=== PATIENT | male | born 1950 | race Caucasian/White ===

== ENCOUNTER 2018-11-27 13:19 | Emergency (ER) | payer OTHER ==
[2018-11-27 14:06] LABS: Absolute Lymphocytes (CBC) 1.8 K/uL (0.7-4.9); Basophils % 1.2 % (0-1.3); Eosinophils % 2.4 % (0-4.4); Hematocrit 45.9 % (39.6-49.0); Lymphocytes % 32.2 % (15.3-44.8); MPV 9.6 fL (7.6-11.3); Monocytes % 8.6 % (3.3-12.3); RBC Red Blood Cell Count 4.94 M/uL (4.33-5.43)
[2018-11-27 14:20] LABS: Albumin 3.8 g/dL (3.4-5.0); Bilirubin Direct 0.1 mg/dL (0-0.2); Bilirubin Total 0.5 mg/dL (0.2-1.0); Potassium 3.9 mmol/L (3.5-5.1); Protein, Total 7.3 g/dL (6.4-8.2)
[2018-11-27 14:49] LABS: Urine Blood NEGATIVE (NEG); Urine Glucose NEGATIVE (NEG); Urine Protein NEGATIVE (NEG)
--- NOTE | 2018-11-27 16:36 | RAD REPORT ---
EXAM DESCRIPTION: CTAbdomen Pelvis W Contrast - 11/27/2018 4:19 pm CLINICAL HISTORY: Abdominal pain. ABD PAIN COMPARISON: No comparisons TECHNIQUE: Biphasic CT imaging of the abdomen and pelvis was performed with 100 ml non-ionic IV cont rast. All CT scans are performed using dose optimization technique as appropriate and may include automated exposure control or mA/KV adjustment according to patient size. FINDINGS: The lung bases are clear. The liver, spleen, pancreas, adrenal glands and kidneys are within normal limits. 20 mm left renal c yst. No bowel obstruction, free air, free fluid or abscess. The appendix is normal. No evidence of signi ficant lymphadenopathy. No suspicious bony findings. Small bilateral inguinal hernias containing fat. IMPRESSION: No acute intra-abdominal or pelvic finding.
--- NOTE | 2018-11-27 16:41 | EDPHYS ---
Physician Documentation [facility] Name: Hever Hazel Age: 68 yrs Sex: Male : 1950 Arrival Date: 11/27/2018 Time: 13:24 Bed 19 Private MD: ED Physician Irving Luevano HPI: 11/27 14:35 This 68 yrs old Male presents to ER via Ambulatory with complaints of kb Abdominal Pain. 14:35 The patient presents with abdominal pain right lower quadrant. Onset: The kb symptoms/episode began/occurred 4 day(s) ago. The symptoms do not radiate. Associated signs and symptoms: none. The symptoms are described as dull. Modifying factors: The symptoms are alleviated by nothing, the symptoms are aggravated by nothing. Severity of pain: At its worst the pain was mild in the emergency department the pain is unchanged. The patient has not experienced similar symptoms in the past. The patient has not recently seen a physician. Pt reports RLQ pain for 4 days that isn't getting any better. . Historical: - Allergies: 13:25 No Known Allergies; aj1 - Home Meds: 13:25 None [Active]; aj1 - PMHx: 13:25 None; aj1 - PSHx: 13:25 thumb surgery; aj1 - Immunization history:: Flu vaccine is up to date. - Social history:: Smoking status: Patient/guardian denies using tobacco. - Ebola Screening: : Patient denies travel to an Ebola-affected area in the 21 days before illness onset. ROS: 14:35 Constitutional: Negative for fever, chills, and weight loss, ENT: Negative for injury, kb pain, and discharge, Neck: Negative for injury, pain, and swelling, Cardiovascular: Negative for chest pain, palpitations, and edema, Respiratory: Negative for shortness of breath, cough, wheezing, and pleuritic chest pain, Back: Negative for injury and pain, : Negative for injury, bleeding, discharge, and swelling, MS/Extremity: Negative for injury and deformity, Skin: Negative for injury, rash, and discoloration, Neuro: Negative for headache, weakness, numbness, tingling, and seizure. 14:35 Abdomen/GI: Positive for abdominal pain, Negative for nausea, vomiting, and diarrhea, constipation, abdominal cramps, abdominal distension, anorexia. Exam: 14:35 Constitutional: This is a well developed, well nourished patient who is awake, alert, kb and in no acute distress. Head/Face: Normocephalic, atraumatic. ENT: Nares patent. No nasal discharge, no septal abnormalities noted. Tympanic membranes are normal and external auditory canals are clear. Oropharynx with no redness, swelling, or masses, exudates, or evidence of obstruction, uvula midline. Mucous membranes moist. Neck: Trachea midline, no thyromegaly or masses palpated, and no cervical lymphadenopathy. Supple, full range of motion without nuchal rigidity, or vertebral point tenderness. No Meningismus. Chest/axilla: Normal chest wall appearance and motion. Nontender with no deformity. No lesions are appreciated. Cardiovascular: Regular rate and rhythm with a normal S1 and S2. No gallops, murmurs, or rubs. Normal PMI, no JVD. No pulse deficits. Respiratory: Lungs have equal breath sounds bilaterally, clear to auscultation and percussion. No rales, rhonchi or wheezes noted. No increased work of breathing, no retractions or nasal flaring. Back: No spinal tenderness. No costovertebral tenderness. Full range of motion. Skin: Warm, dry with normal turgor. Normal color with no rashes, no lesions, and no evidence of cellulitis. MS/ Extremity: Pulses equal, no cyanosis. Neurovascular intact. Full, normal range of motion. Neuro: Awake and alert, GCS 15, oriented to person, place, time, and situation. Cranial nerves II-XII grossly intact. Motor strength 5/5 in all extremities. Sensory grossly intact. Cerebellar exam normal. Normal gait. 14:35 Abdomen/GI: Inspection: abdomen appears normal, Bowel sounds: normal, in all quadrants, Palpation: soft, in all quadrants, mild abdominal tenderness, in the right upper quadrant and right lower quadrant. Vital Signs: 13:25 BP 130 / 78; Pulse 71; Resp 18; Temp 97.6; Pulse Ox 99% on R/A; Weight 65.77 kg (R); aj1 Height 5 ft. 8 in. (172.72 cm) (R); Pain 2/10; 15:55 BP 141 / 75; Pulse 63; Resp 17; Temp 97.8(O); Pulse Ox 99% on R/A; ch 16:58 BP 140 / 90; Pulse 58; Resp 14; Temp 98.8; Pulse Ox 99% on R/A; Pain 0/10; ch 13:25 Body Mass Index 22.05 (65.77 kg, 172.72 cm) aj1 MDM: 13:34 Patient medically screened. kb 14:35 Data reviewed: vital signs, nurses notes. Data interpreted: Pulse oximetry: on room air kb is 99 %. Interpretation: normal. 16:39 Counseling: I had a detailed discussion with the patient and/or guardian regarding: the kb historical points, exam findings, and any diagnostic results supporting the discharge/admit diagnosis, lab results, radiology results, the need for outpatient follow up, a family practitioner, to return to the emergency department if symptoms worsen or persist or if there are any questions or concerns that arise at home. 11/27 13:37 Order name: Basic Metabolic Panel; Complete Time: 14:24 kb 11/27 13:37 Order name: CBC with Diff; Complete Time: 14:24 kb 11/27 13:37 Order name: Hepatic Function; Complete Time: 14:24 kb 11/27 13:37 Order name: Lipase; Complete Time: 14:24 kb 11/27 13:37 Order name: CT Abd/Pelvis - PO and IV Contrast; Complete Time: 16:39 kb 11/27 14:36 Order name: Urine Dipstick--Ancillary (enter results); Complete Time: 14:51 ag 11/27 13:37 Order name: IV Saline Lock; Complete Time: 14:05 kb 11/27 13:37 Order name: Labs collected and sent; Complete Time: 14:05 kb Administered Medications: No medications were administered Disposition: 17:10 Co-signature as Attending Physician, Irving Luevano MD. rn Disposition: 11/27/18 16:39 Discharged to Home. Impression: Lower abdominal pain, unspecified. - Condition is Stable. - Discharge Instructions: Abdominal Pain, Adult, [id number]. - Medication Reconciliation Form, Thank You Letter, Antibiotic Education, Prescription Opioid Use form. - Follow up: Emergency Department; When: As needed; Reason: Worsening of condition. Follow up: Private Physician; When: 2 - 3 days; Reason: Recheck today's complaints, Continuance of care, Re-evaluation by your physician. Signatures: Dispatcher [employer] EDMS Jesenia Thakur, CREW CLERK-C CREW CLERK-Ckb Jacki Arce, RN RN ch Ana M Magdaleno, RN RN aj1 Irving Luevano MD MD county attorney: (The following items were deleted from the chart) 16:59 16:39 11/27/2018 16:39 Discharged to Home. Impression: Lower abdominal pain, ch unspecified. Condition is Stable. Forms are Medication Reconciliation Form, Thank You Letter, Antibiotic Education, Prescription Opioid Use. Follow up: Emergency Department; When: As needed; Reason: Worsening of condition. Follow up: Private Physician; When: 2 - 3 days; Reason: Recheck today's complaints, Continuance of care, Re-evaluation by your physician. kb
--- NOTE | 2018-11-27 16:41 | ER ---
Nurse's Notes [facility] Name: Hever Hazel Age: 68 yrs Sex: Male : 1950 Arrival Date: 11/27/2018 Time: 13:24 Bed 19 Private MD: Diagnosis: Lower abdominal pain, unspecified Presentation: 11/27 13:24 Presenting complaint: Patient states: RLQ abdominal pain for the past week. Denies aj1 N/V/D. Transition of care: patient was not received from another setting of care. Onset of symptoms was November 2018. Risk Assessment: Do you want to hurt yourself or someone else? Patient reports no desire to harm self or others. Initial Sepsis Screen: Does the patient meet any 2 criteria? No. Patient's initial sepsis screen is negative. Does the patient have a suspected source of infection? Yes: Acute abdominal pain. Care prior to arrival: None. 13:24 Method Of Arrival: Ambulatory aj1 13:24 Acuity: GEORGE 3 aj1 Triage Assessment: 13:25 General: Appears in no apparent distress. comfortable, Behavior is calm, cooperative, aj1 appropriate for age. Pain:. Pain: Complains of pain in right lower quadrant Pain currently is 2 out of 10 on a pain scale. Neuro: Level of Consciousness is awake, alert, obeys commands. Cardiovascular: Patient's skin is warm and dry. Respiratory: Airway is patent Respiratory effort is even, unlabored, Respiratory pattern is regular, symmetrical. GI: Reports lower abdominal pain, Patient currently denies diarrhea, nausea, vomiting. Historical: - Allergies: 13:25 No Known Allergies; aj1 - Home Meds: 13:25 None [Active]; aj1 - PMHx: 13:25 None; aj1 - PSHx: 13:25 thumb surgery; aj1 - Immunization history:: Flu vaccine is up to date. - Social history:: Smoking status: Patient/guardian denies using tobacco. - Ebola Screening: : Patient denies travel to an Ebola-affected area in the 21 days before illness onset. Screenin:38 Abuse screen: Denies threats or abuse. Denies injuries from another. Nutritional ch screening: No deficits noted. Tuberculosis screening: No symptoms or risk factors identified. Fall Risk None identified. Assessment: 13:28 General: Appears in no apparent distress. comfortable, Behavior is calm, cooperative, ch appropriate for age. Pain: Complains of pain in abdomen and right lower quadrant. 14:00 Neuro: No deficits noted. Respiratory: Airway is patent Respiratory effort is even, ch unlabored, Breath sounds are clear bilaterally. GI: Bowel sounds present X 4 quads. Abd is soft and non tender X 4 quads. Derm: Skin is pink, warm \T\ dry. 14:00 Cardiovascular: No deficits noted. ch 14:55 Reassessment: Patient appears in no apparent distress at this time. Patient and/or ch family updated on plan of care and expected duration. Pain level reassessed. Patient is alert, oriented x 3, equal unlabored respirations, skin warm/dry/pink. pt states his pain is a 2, denies need for pain medication. pt awaiting ct scan. 15:55 Reassessment: Patient appears in no apparent distress at this time. Patient and/or ch family updated on plan of care and expected duration. Pain level reassessed. Patient is alert, oriented x 3, equal unlabored respirations, skin warm/dry/pink. 16:56 Reassessment: Patient appears in no apparent distress at this time. Patient and/or ch family updated on plan of care and expected duration. Pain level reassessed. Patient is alert, oriented x 3, equal unlabored respirations, skin warm/dry/pink. Patient states feeling better. Patient states symptoms have improved. Vital Signs: 13:25 BP 130 / 78; Pulse 71; Resp 18; Temp 97.6; Pulse Ox 99% on R/A; Weight 65.77 kg (R); aj1 Height 5 ft. 8 in. (172.72 cm) (R); Pain 2/10; 15:55 BP 141 / 75; Pulse 63; Resp 17; Temp 97.8(O); Pulse Ox 99% on R/A; ch 16:58 BP 140 / 90; Pulse 58; Resp 14; Temp 98.8; Pulse Ox 99% on R/A; Pain 0/10; ch 13:25 Body Mass Index 22.05 (65.77 kg, 172.72 cm) aj1 ED Course: 13:24 Patient arrived in ED. mr 13:25 Triage completed. aj1 13:25 Arm band placed on Patient placed in an exam room. aj1 13:28 Jacki Arce, RN is Primary Nurse. 13:33 Jesenia Thakur FNP-C is [facility]. kb 13:33 Irving Luevano MD is Attending Physician. kb 13:38 Patient has correct armband on for positive identification. Placed in gown. Bed in low ch position. Call light in reach. Pulse ox on. NIBP on. 13:38 No provider procedures requiring assistance completed. 13:50 Inserted saline lock: 18 gauge in right forearm, using aseptic technique. Blood ch collected. 16:19 CT Abd/Pelvis - PO and IV Contrast In Process Unspecified. EDMS 16:58 IV discontinued, intact, bleeding controlled, No redness/swelling at site. Pressure ch dressing applied. Administered Medications: No medications were administered Outcome: 16:39 Discharge ordered by . kb 16:58 Discharged to home ambulatory. 16:58 Condition: improved 16:58 Discharge instructions given to patient, Instructed on discharge instructions, follow up and referral plans. Demonstrated understanding of instructions, follow-up care. 16:59 Patient left the ED. Signatures: Dispatcher [employer] EDIA Jesenia Thakur FNP-C BRASS FINISHER-CkJacki Tolbert, RN RN Ana M Lundberg RN RN aj1 Brenda Romano mr
== END 2018-11-27 16:59 | disposition home or self-care (01) ==
LOC: ER 13:19
DX: R10.31 Right lower quadrant pain (principal)
CPT/HCPCS: 85025; 80048; 36415; 80076; 81003; 83690; 74177; Q9967; 99284

== ENCOUNTER 2019-02-09 10:58 | Emergency (ER) | payer OTHER ==
--- OUTSIDE RECORDS SUMMARY | 2019-02-09 11:00 | XMS REPORT | Clinical Summary ---
:1950 Author Organization [facility] Address [address] [place] [address] Care Team Providers Name Role Phone Asked, No Pcp Primary Care Provider Unavailable Allergies No Known Allergies Medications Not on file Active Problems Not on file Encounters Date Type Specialty Care Team Description 11/23/2018 Office Visit Ophthalmology Sherry Douglass MD Posterior vitreous detachment, bilateral (Primary Dx) 11/23/2018 Emergency Emergency Medicine Kenan Dasilva Vitreous detachment of left eye (Primary Dx) 11/23/2018 Telephone Ophthalmology Center, Ophthalmology - Clinical Care after 02/08/2018 Social History Tobacco Use Types Packs/Day Years Used Date Never Smoker Smokeless Tobacco: Never Used Alcohol Use Drinks/Week oz/Week Comments Not Currently Sex Assigned at Date Recorded Not on file Job Start Date Occupation Industry Not on file Not on file Not on file Travel History Travel Start Travel End No recent travel history available. Last Filed Vital Signs Vital Sign Reading Time Taken Comments Blood Pressure 141/78 11/23/2018 11:56 AM CDT Pulse 64 11/23/2018 11:56 AM CDT Temperature 36.4 C (97.5 F) 11/23/2018 10:01 AM CDT Respiratory Rate 17 11/23/2018 11:56 AM CDT Oxygen Saturation 98% 11/23/2018 11:56 AM CDT Inhaled Oxygen Concentration - - Weight - - Height 172.7 cm (5' 8") 11/23/2018 10:01 AM CDT Body Mass Index - - Plan of Treatment Health Maintenance Due Date Last Done Comments COLONOSCOPY SCREENING 2001 SHINGLES VACCINES (#1) 2001 65+ PNEUMOCOCCAL VACCINE (1 of 2 - PCV13) 01/02/2016 INFLUENZA VACCINE 01/03/2019 Results Not on fileafter 02/08/2018 Insurance Payer Benefit Plan / Subscriber ID Effective Dates Phone Address Type Group MEDICARE MEDICARE PART A xxxxxxxxxxx 2015-Present [place], [place] Medicare AND B FOR LIFE xxxxxxxxxxx 2018-Present Advance Directives For more information, please contact: [phone] Type Date Recorded 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
[2019-02-09] MEDS ORDERED: NA CHLORIDE 0.9% 1,000 ML ONE (12:45)
[2019-02-09] MEDS ORDERED: METOCLOPRAMIDE 10 MG/2mL INJ ONE (12:45)
[2019-02-09] MEDS ORDERED: MEPERIDINE HCL 25 MG/0.5 ML ONE (12:45)
[2019-02-09 13:04] LABS: Absolute Lymphocytes (CBC) 1.6 K/uL (0.7-4.9); Basophils % 1.1 % (0-1.3); Hematocrit 47.6 % (39.6-49.0); Lymphocytes % 27.2 % (15.3-44.8); MPV 9.9 fL (7.6-11.3); RBC Red Blood Cell Count 5.14 M/uL (4.33-5.43)
[2019-02-09 13:16] LABS: Potassium 4.1 mmol/L (3.5-5.1)
--- NOTE | 2019-02-09 14:00 | RAD REPORT ---
EXAM DESCRIPTION: CT - Head Brain Wo Cont - 02/09/2019 1:54 pm CLINICAL HISTORY: Headache COMPARISON: None. TECHNIQUE: Axial 5 mm thick images of the head were obtained without IV contrast. All CT scans are performed using dose optimization technique as appropriate and may include automated exposure control or mA/KV adjustment according to patient size. FINDINGS: No intracranial hemorrhage, mass, edema or shift of mid-line structures. No acute infarcti on changes seen. Atrophy changes are mild. No measurable chronic ischemic change on CT imaging. Ventr icles are normal. Mastoid air cells and visualized portions of the paranasal sinuses are clear. No acute bony findings. IMPRESSION: Negative non-contrast CT head examination for acute finding.
--- NOTE | 2019-02-09 14:03 | RAD REPORT ---
EXAM DESCRIPTION: CT - Head angio - 02/09/2019 1:54 pm CLINICAL HISTORY: HEADACHE TECHNIQUE: During dynamic enhancement using nonionic IV contrast, axial 1 millimeter thick images of the head were obtained. Sagittal and axial reconstruction images were generated using MIP technique and reviewed. All CT scans are performed using dose optimization technique as appropriate and may include automated exposure control or mA/KV adjustment according to patient size. FINDINGS: No aneurysm or vascular malformation identified. Major venous sinuses are patent. No stenosis, branch occlusion, vasculitis or other significant arterial finding. Major venous sinuses are grossly normal. Sigmoid and transverse sinuses show only minimal opacification due to timing of the image acquisition. IMPRESSION: Negative CT angio head examination.
--- NOTE | 2019-02-09 14:29 | ER ---
Nurse's Notes [facility] Name: Hever Hazel Age: 69 yrs Sex: Male : 1950 Arrival Date: 02/09/2019 Time: 10:59 Bed 25 Private MD: Diagnosis: Headache;Hypertension Presentation: 02/09 11:06 Presenting complaint: Patient states: headache behind left ear that began yesterday and aa5 got worse today. Pt denies recent fall. Pt states "I rarely get headaches". Territory Supervisor equal, steady gait noted, Pupils are PERRLA, no droop noted, pt is A\\T\\O x 4. Transition of care: patient was not received from another setting of care. Onset of symptoms was February 2019. Risk Assessment: Do you want to hurt yourself or someone else? Patient reports no desire to harm self or others. Initial Sepsis Screen: Does the patient meet any 2 criteria? No. Patient's initial sepsis screen is negative. Does the patient have a suspected source of infection? No. Patient's initial sepsis screen is negative. Care prior to arrival: None. 11:06 Acuity: GEORGE 3 aa5 11:06 Method Of Arrival: Ambulatory aa5 Triage Assessment: 14:43 Pain: Also complains of no other associated symptoms. tr5 Historical: - Allergies: 11:08 No Known Allergies; aa5 - Home Meds: 11:08 None [Active]; aa5 - PMHx: 11:08 None; aa5 - PSHx: 11:08 R thumb surgery; aa5 - Immunization history:: Adult Immunizations up to date. - Social history:: Smoking status: Patient/guardian denies using tobacco. - Ebola Screening: : No symptoms or risks identified at this time. - Family history:: not pertinent. - Hospitalizations: : No recent hospitalization is reported. Screenin:12 Abuse screen: Denies threats or abuse. Denies injuries from another. Nutritional ca1 screening: No deficits noted. Tuberculosis screening: No symptoms or risk factors identified. Fall Risk None identified. Assessment: 12:12 General: Appears in no apparent distress. comfortable, Behavior is calm, cooperative, ca1 appropriate for age. Pain: Complains of pain in left occipital area Pain radiates to left side of the back of head Pain currently is 6 out of 10 on a pain scale. at worst was 9 out of 10 on a pain scale. Quality of pain is described as throbbing, Pain began 1 day ago. Is intermittent. Neuro: Level of Consciousness is awake, alert, obeys commands, Oriented to person, place, time, situation, Territory Supervisor are equal bilaterally Moves all extremities. Gait is steady, Speech is normal, Facial symmetry appears normal, Pupils are PERRLA. Cardiovascular: Heart tones S1 S2 present Capillary refill < 3 seconds Patient's skin is warm and dry. Respiratory: Airway is patent Respiratory effort is even, unlabored, Respiratory pattern is regular, symmetrical, Breath sounds are clear bilaterally. GI: Abdomen is flat, non-distended, Bowel sounds present X 4 quads. Abd is soft and non tender X 4 quads. Reports. : No deficits noted. No signs and/or symptoms were reported regarding the genitourinary system. EENT: Tympanic membrane not visualized left ear and right ear Ear canal clear on left ear and right ear. Derm: Skin is intact, is healthy with good turgor, Skin is pink, warm \\T\\ dry. Musculoskeletal: Circulation, motion, and sensation intact. Capillary refill < 3 seconds, Range of motion: intact in all extremities. 12:17 Reassessment: Provider at bedside. ca1 12:59 Reassessment: Patient appears in no apparent distress at this time. Patient and/or ca1 family updated on plan of care and expected duration. Pain level reassessed. Patient is alert, oriented x 3, equal unlabored respirations, skin warm/dry/pink. 14:10 Reassessment: Patient and/or family updated on plan of care and expected duration. Pain tr5 level reassessed. Patient is alert, oriented x 3, equal unlabored respirations, skin warm/dry/pink. Vital Signs: 11:08 BP 157 / 93; Pulse 73; Resp 18 S; Temp 97.5(TE); Pulse Ox 98% on R/A; Weight 65.77 kg aa5 (R); Height 5 ft. 8 in. (172.72 cm) (R); Pain 6/10; 12:12 BP 163 / 91; Pulse 66; Resp 17 S; Pulse Ox 100% on R/A; ca1 12:59 BP 159 / 88; Pulse 63; Resp 16 S; Pulse Ox 97% on R/A; ca1 14:10 BP 161 / 88; Pulse 71; Resp 17; Pulse Ox 99% on R/A; tr5 11:08 Body Mass Index 22.05 (65.77 kg, 172.72 cm) aa5 Rose Mary Coma Score: 14:24 Eye Response: spontaneous(4). Verbal Response: oriented(5). Motor Response: obeys rn commands(6). Total: 15. ED Course: 10:59 Patient arrived in ED. as 11:07 Triage completed. aa5 11:07 Arm band placed on. aa5 11:57 Palma Mg, RN is Primary Nurse. ca1 12:04 Irving Luevano MD is Attending Physician. rn 12:12 Patient has correct armband on for positive identification. Bed in low position. Call ca1 light in reach. Side rails up X 1. Pulse ox on. NIBP on. Noise minimized. Lights dimmed. Warm blanket given. Head of bed elevated. 12:12 No provider procedures requiring assistance completed. ca1 12:50 Initial lab(s) drawn, by me, sent to lab. Inserted saline lock: 20 gauge in left lt1 antecubital area, using aseptic technique. 13:09 Radiology exam delayed due to lab results not completed at this time. (BUN/Creatinine). kw1 13:54 CT completed. Patient tolerated procedure well. Patient moved back from CT. kw1 13:55 CT Head Brain wo Cont In Process Unspecified. EDMS 13:55 CT Head Angio In Process Unspecified. EDMS 14:44 IV discontinued. tr5 Administered Medications: 12:45 Drug: NS 0.9% 1000 ml Route: IV; Rate: 1000 ml; Site: left antecubital; ca1 16:28 Follow up: Urine output 230 ml; Response: No adverse reaction; IV Status: Completed ca1 infusion 12:50 Drug: Reglan 10 mg Route: IVP; Site: left antecubital; ca1 13:40 Follow up: Response: No adverse reaction; Pain is decreased ca1 12:50 Not Given (Patient Refused): Demerol 25 mg IVP once; RASS on ADMIN: Combtv4, Very ca1 Agttd3, Agttd2, Rstlss1, AlertClm0, Drwsy-1, Lt Sdtn-2, Mod Sdtn-3, Dp Sdtn-4, UnArsble-5 Outcome: 14:28 Discharge ordered by MD. peralta 14:44 Discharged to home ambulatory. tr5 14:44 Condition: stable 14:44 Discharge instructions given to patient, Instructed on discharge instructions, follow up and referral plans. Demonstrated understanding of instructions, follow-up care. 14:45 Patient left the ED. tr5 Signatures: Dispatcher [employer] Sissy Hyde Roman, MD MD rn Calderon, Audri, RN RN aa5 Eva Madrid kw1 Palma Mg RN RN ca1 Damian, Deanna lt1 Arpit Macias RN RN tr5 Corrections: (The following items were deleted from the chart) 11:09 11:08 BP 157 / 93; Pulse 73bpm; Resp 18bpm; Spontaneous; Pulse Ox 98% RA; Temp 97.5F aa5 Temporal; aa5 16:29 13:11 Response: No adverse reaction; Pain is decreased ca1 ca1
--- NOTE | 2019-02-09 14:29 | EDPHYS ---
Physician Documentation [facility] Name: Hever Hazel Age: 69 yrs Sex: Male : 1950 Arrival Date: 02/09/2019 Time: 10:59 Bed 25 Private MD: ED Physician Irving Luevano HPI: 02/09 14:24 This 69 yrs old Male presents to ER via Ambulatory with complaints of rn Headache. 14:24 The patient complains of pain to the left temporal area and left occipital area. The rn patient describes the headache as aching. Onset: The symptoms/episode began/occurred 2 day(s) ago. Associated signs and symptoms: Pertinent positives: This patient does not have any pertinent positive signs or symptoms associated with a headache. Pertinent negatives: altered mental status, dizziness, fever, neck stiffness, rash, vision changes, vision loss, vomiting, weakness, vertigo. Headache History: Denies prior headaches. The symptoms are alleviated by nothing. the symptoms are aggravated by nothing. The patient has not experienced similar symptoms in the past. The patient has not recently seen a physician. New headache, began 2 days ago, no trauma, able to play golf yesterday, no focal neuro deficits or complaints.. Historical: - Allergies: 11:08 No Known Allergies; aa5 - Home Meds: 11:08 None [Active]; aa5 - PMHx: 11:08 None; aa5 - PSHx: 11:08 R thumb surgery; aa5 - Immunization history:: Adult Immunizations up to date. - Social history:: Smoking status: Patient/guardian denies using tobacco. - Ebola Screening: : No symptoms or risks identified at this time. - Family history:: not pertinent. - Hospitalizations: : No recent hospitalization is reported. ROS: 14:24 Constitutional: Negative for fever, chills, and weight loss, Eyes: Negative for injury, rn pain, redness, and discharge, ENT: Negative for injury, pain, and discharge, Neck: Negative for injury, pain, and swelling, Cardiovascular: Negative for chest pain, palpitations, and edema, Respiratory: Negative for shortness of breath, cough, wheezing, and pleuritic chest pain, Abdomen/GI: Negative for abdominal pain, nausea, vomiting, diarrhea, and constipation, MS/Extremity: Negative for injury and deformity, Skin: Negative for injury, rash, and discoloration, Neuro: Negative for weakness, numbness, tingling, and seizure. Exam: 14:24 Constitutional: This is a well developed, well nourished patient who is awake, alert, rn and in no acute distress. Head/Face: Normocephalic, atraumatic. Eyes: Pupils equal round and reactive to light, extra-ocular motions intact. Lids and lashes normal. Conjunctiva and sclera are non-icteric and not injected. Cornea within normal limits. Periorbital areas with no swelling, redness, or edema. ENT: MMM Neck: Trachea midline, no thyromegaly or masses palpated, and no cervical lymphadenopathy. Supple, full range of motion without nuchal rigidity, or vertebral point tenderness. No Meningismus. Cardiovascular: Regular rate and rhythm. No pulse deficits. Skin: Warm, dry MS/ Extremity: Pulses equal, no cyanosis. Neurovascular intact. Full, normal range of motion. Equal circumference. Neuro: Awake and alert, GCS 15, oriented to person, place, time, and situation. Cranial nerves II-XII grossly intact. Motor strength 5/5 in all extremities. Sensory grossly intact. Cerebellar exam normal. Vital Signs: 11:08 BP 157 / 93; Pulse 73; Resp 18 S; Temp 97.5(TE); Pulse Ox 98% on R/A; Weight 65.77 kg aa5 (R); Height 5 ft. 8 in. (172.72 cm) (R); Pain 6/10; 12:12 BP 163 / 91; Pulse 66; Resp 17 S; Pulse Ox 100% on R/A; ca1 12:59 BP 159 / 88; Pulse 63; Resp 16 S; Pulse Ox 97% on R/A; ca1 14:10 BP 161 / 88; Pulse 71; Resp 17; Pulse Ox 99% on R/A; tr5 11:08 Body Mass Index 22.05 (65.77 kg, 172.72 cm) aa5 [place] Coma Score: 14:24 Eye Response: spontaneous(4). Verbal Response: oriented(5). Motor Response: obeys rn commands(6). Total: 15. MDM: 12:04 Patient medically screened. rn 14:24 Differential diagnosis: hypertensive headache, migraine, neoplasm, tension headache, rn vasomotor headache. Data reviewed: vital signs, nurses notes, lab test result(s), radiologic studies, CT scan, and as a result, I will discharge patient. Counseling: I had a detailed discussion with the patient and/or guardian regarding: the historical points, exam findings, and any diagnostic results supporting the discharge/admit diagnosis, lab results, radiology results, the need for outpatient follow up, to return to the emergency department if symptoms worsen or persist or if there are any questions or concerns that arise at home. Response to treatment: the patient's symptoms have markedly improved after treatment, and as a result, I will discharge patient. Special discussion: I discussed with the patient/guardian in detail that at this point there is no indication for admission to the hospital. It is understood, however, that if the symptoms persist or worsen the patient needs to return immediately for re-evaluation. 14:24 Special discussion: I have referred the patient to see his PCP for further evaluation rn of high blood pressure. 02/09 13:00 Order name: Basic Metabolic Panel; Complete Time: 14:22 EDNE 02/09 13:00 Order name: [place] Screen; Complete Time: 14:22 EDNE 02/09 13:00 Order name: CBC with Automated Diff; Complete Time: 14:22 EDNE 02/09 12:25 Order name: CT Head Brain wo Cont; Complete Time: 14:22 rn 02/09 12:25 Order name: CT Head Angio; Complete Time: 14:22 rn 02/09 12:25 Order name: IV Start; Complete Time: 12:50 rn Administered Medications: 12:45 Drug: NS 0.9% 1000 ml Route: IV; Rate: 1000 ml; Site: left antecubital; ca1 16:28 Follow up: Urine output 230 ml; Response: No adverse reaction; IV Status: Completed ca1 infusion 12:50 Drug: Reglan 10 mg Route: IVP; Site: left antecubital; ca1 13:40 Follow up: Response: No adverse reaction; Pain is decreased ca1 12:50 Not Given (Patient Refused): Demerol 25 mg IVP once; RASS on ADMIN: Combtv4, Very ca1 Agttd3, Agttd2, Rstlss1, AlertClm0, Drwsy-1, Lt Sdtn-2, Mod Sdtn-3, Dp Sdtn-4, UnArsble-5 Disposition: 02/09/19 14:28 Discharged to Home. Impression: Headache, Hypertension. - Condition is Stable. - Discharge Instructions: General Headache Without Cause, Hypertension. - Medication Reconciliation Form, Thank You Letter, Antibiotic Education, Prescription Opioid Use form. - Follow up: Private Physician; When: As needed; Reason: Recheck today's complaints, Re-evaluation by your physician. - Problem is new. - Symptoms have improved. Signatures: Dispatcher [employer] EDNE Irving Luevano MD MD rn Calderon, Audri RN RN aa5 Palma Mg RN RN ca1 Arpit Macias RN RN tr5 Corrections: (The following items were deleted from the chart) 13:07 13:01 CT-HEAD/BRAIN W/O CONTRAST ordered. EDNE EDNE 13:07 13:01 Head angio ordered. EDNE EDNE 13:51 13:03 CBC+H.LAB.BRZ ordered. EDNE EDNE 13:51 13:03 MONO SCREEN PROFILE+I.LAB.BRZ ordered. EDNE EDNE 13:52 13:03 BASIC METABOLIC PANEL+C.LAB.BRZ ordered. EDNE EDNE 14:45 14:28 02/09/2019 14:28 Discharged to Home. Impression: Headache; Hypertension. tr5 Condition is Stable. Forms are Medication Reconciliation Form, Thank You Letter, Antibiotic Education, Prescription Opioid Use. Follow up: Private Physician; When: As needed; Reason: Recheck today's complaints, Re-evaluation by your physician. Problem is new. Symptoms have improved. rn
[2019-02-09 15:03] VITALS: TEMP 97.5
[2019-02-09 15:07] VITALS: BP 161/88; O2SAT 99
== END 2019-02-09 14:45 | disposition home or self-care (01) ==
LOC: ER 10:58
DX: I10 Essential (primary) hypertension (principal)
CPT/HCPCS: 96361; 85025; 80048; 36415; 86308; 70450; 70496; 96374; 99284; Q9967; J2765; J7030; J2175